=== PATIENT | male | born 1970 | race Caucasian/White ===

== ENCOUNTER 2016-11-29 19:24 | Emergency (ER) | payer BC ==
[2016-11-29 20:15] LABS: HEMOGLOBIN 14.8 gm/dl (14.0-17.5); RED BLOOD COUNT 5.01 M/UL (4.20-5.50); WHITE BLOOD COUNT 11.1 K/UL (4.5-11.0)
[2016-11-29 20:30] LABS: BUN/CREATININE RATIO 13 (0-10)
== END 2016-11-29 21:05 | disposition home or self-care (01) ==
LOC: ER1 19:24
PROVIDERS: Physician Assistant Medical
DX: R05 Cough (principal); J34.89 Other specified disorders of nose and nasal sinuses; R06.02 Shortness of breath; E11.9 Type 2 diabetes mellitus without complications; F41.9 Anxiety disorder, unspecified; K21.9 Gastro-esophageal reflux disease without esophagitis; Z79.899 Other long term (current) drug therapy
CPT/HCPCS: 36415; 71020; 80053; 85025; 87081; 87880; 99283

== ENCOUNTER 2020-12-10 17:22 | Emergency (ER) | payer OTHER ==
[~2020-12-10 17:22] MED LIST: BENTYL 20MG TAB20 MG PO; ZOFRAN ODT 4 MG4 MG PO
[2020-12-10 18:12] LABS: HEMOGLOBIN 14.8 gm/dl (14.0-17.5); RED BLOOD COUNT 5.08 M/UL (4.20-5.50); WHITE BLOOD COUNT 10.8 K/UL (4.5-11.0)
[2020-12-10 18:40] LABS: BUN/CREATININE RATIO 17 (0-10)
[2020-12-10] MEDS ORDERED: CARAFATE1 GM PO (20:30)
== END 2020-12-10 20:29 | disposition home or self-care (01) ==
LOC: ER1 17:22
PROVIDERS: Physician Assistant
DX: R10.10 Upper abdominal pain, unspecified (principal); E11.9 Type 2 diabetes mellitus without complications; E78.5 Hyperlipidemia, unspecified; K21.9 Gastro-esophageal reflux disease without esophagitis; F17.290 Nicotine dependence, other tobacco product, uncomplicated
CPT/HCPCS: 80053; 81001; 82550; 82553; 83690; 83874; 84484; 85025; 93005; 99284; Q9967

== ENCOUNTER 2021-05-31 11:07 | Emergency (ER) | payer OTHER ==
[~2021-05-31 11:07] MED LIST changes: +CARAFATE1 GM PO
[2021-05-31] MEDS ORDERED: IBUPROFEN600 MG PO (11:56)
[2021-05-31] MEDS ORDERED: CLEOCIN HCL300 MG PO (11:56)
== END 2021-05-31 12:06 | disposition home or self-care (01) ==
LOC: ER1 11:07
DX: K04.7 Periapical abscess without sinus (principal); E11.9 Type 2 diabetes mellitus without complications
CPT/HCPCS: 96372; 99282; J0696

== ENCOUNTER 2021-06-04 12:14 | Emergency (ER) | payer OTHER ==
[~2021-06-04 12:14] MED LIST changes: +CLEOCIN HCL300 MG PO; +IBUPROFEN600 MG PO
== END 2021-06-04 15:34 | disposition home or self-care (01) ==
LOC: ER1 12:14
DX: K04.7 Periapical abscess without sinus (principal); E10.9 Type 1 diabetes mellitus without complications; F41.9 Anxiety disorder, unspecified
CPT/HCPCS: 99282

== ENCOUNTER 2021-07-19 13:35 | Emergency (ER) | payer OTHER ==
[2021-07-19 14:04] LABS: HEMOGLOBIN 14.8 gm/dl (14.0-17.5); RED BLOOD COUNT 5.01 M/UL (4.20-5.50); WHITE BLOOD COUNT 7.8 K/UL (4.5-11.0)
[2021-07-19 14:46] LABS: BUN/CREATININE RATIO 9 (0-10)
== END 2021-07-19 17:39 | disposition home or self-care (01) ==
LOC: ER1 13:35
PROVIDERS: Physician Assistant
DX: R10.10 Upper abdominal pain, unspecified (principal); E10.9 Type 1 diabetes mellitus without complications; R10.811 Right upper quadrant abdominal tenderness; R10.812 Left upper quadrant abdominal tenderness; Z20.822 Contact with and (suspected) exposure to COVID-19
CPT/HCPCS: 80053; 81001; 82550; 82553; 83690; 84484; 85025; 93005; 99284; U0002

== ENCOUNTER 2021-07-24 15:52 | Emergency (ER) | payer OTHER ==
[2021-07-24 16:46] LABS: HEMOGLOBIN 15.4 gm/dl (14.0-17.5); RED BLOOD COUNT 5.09 M/UL (4.20-5.50); WHITE BLOOD COUNT 10.5 K/UL (4.5-11.0)
[2021-07-24 17:15] LABS: BUN/CREATININE RATIO 9 (0-10)
== END 2021-07-24 20:30 | disposition home or self-care (01) ==
LOC: ER1 15:52
PROVIDERS: Emergency Medicine
DX: R09.81 Nasal congestion (principal); Z20.822 Contact with and (suspected) exposure to COVID-19; E11.9 Type 2 diabetes mellitus without complications
CPT/HCPCS: 0240U; 71045; 80053; 82550; 82553; 83880; 84484; 85025; 93005; 99284

== ENCOUNTER 2022-03-09 14:22 | Emergency (ER) | payer OTHER ==
[2022-03-09] MEDS ORDERED: CLEOCIN HCL300 MG PO (15:08)
[2022-03-09] MEDS ORDERED: IBU800 MG PO (15:08)
== END 2022-03-09 15:28 | disposition home or self-care (01) ==
LOC: ER1 14:22
DX: K03.81 Cracked tooth (principal); E78.5 Hyperlipidemia, unspecified; R40.2410 Glasgow coma scale score 13-15, unspecified time
CPT/HCPCS: 99282